=== PATIENT | female | born 1950 | race Two or more races ===

== ENCOUNTER 2018-06-06 07:14 | Outpatient (CLI) | payer OTHER | END 2018-06-06 07:22 | disposition home or self-care (01) | LOC: TOM 07:14 | DX: R07.89 Other chest pain (principal); E03.8 Other specified hypothyroidism; F17.200 Nicotine dependence, unspecified, uncomplicated; Z72.0 Tobacco use; F15.21 Other stimulant dependence, in remission; R10.9 Unspecified abdominal pain; E78.2 Mixed hyperlipidemia | CPT/HCPCS: 71270; Q9965 ==

== ENCOUNTER 2022-02-17 10:12 | Outpatient (CLI) | payer OTHER | END 2022-02-17 15:01 | disposition home or self-care (01) | LOC: LAB 10:12 | PROVIDERS: ATTEND General Practice | DX: R51.9 Headache, unspecified (principal) ==

== ENCOUNTER 2022-03-04 08:04 | Outpatient (CLI) | payer OTHER | END 2022-03-04 08:10 | disposition home or self-care (01) | LOC: MRI 08:04 | PROVIDERS: ATTEND General Practice | DX: I67.9 Cerebrovascular disease, unspecified (principal); R51.9 Headache, unspecified | CPT/HCPCS: 70553; Q9965; 70552 ==